=== PATIENT | male | born 1980 | race Caucasian/White ===

== ENCOUNTER 2016-12-22 03:15 | Emergency (ER) | payer MEDICAID ==
[2016-12-22 04:04] LABS: BASOPHIL % 0.4 % (0-2); PLATELET COUNT 137 x10^3mcL (130-400)
[2016-12-22 04:06] LABS: RED CELL DISTRIBUTION WIDTH 15.8 % (11.5-14.5)
[2016-12-22 04:17] LABS: CALCIUM 9.2 mg/dL (8.5-10.1); CHLORIDE SERUM 107 mmol/L (98-107); CREATININE SERUM 0.7 mg/dL (0.7-1.3); GFR1 > 60 mL/min; GLUCOSE SERUM 159 mg/dL (74-106); POTASSIUM SERUM 3.7 mmol/L (3.5-5.1); SODIUM SERUM 143 mmol/L (136-145)
[2016-12-22 04:20] LABS: ALBUMIN 3.4 g/dL (3.4-5.0); ALKALINE PHOSPHATASE 100 U/L (46-116); ALT/SGPT 50 U/L (16-63); AST/SGOT 60 U/L (15-37); BILIRUBIN TOTAL 2.49 mg/dL (0.20-1.00); TOTAL PROTEIN, SERUM 7.3 g/dL (6.4-8.2)
[2016-12-22 06:34] VITALS: BP 134/94
== END 2016-12-22 06:34 | disposition home or self-care (01) ==
LOC: ED 03:15
PROVIDERS: Emergency Medicine
DX: L95.9 Vasculitis limited to the skin, unspecified (principal); J45.909 Unspecified asthma, uncomplicated; Z88.5 Allergy status to narcotic agent
CPT/HCPCS: 83880; Q0092

== ENCOUNTER 2017-02-21 17:19 | Emergency (ER) | payer SELFPAY ==
[2017-02-21 19:58] VITALS: BP 156/94
== END 2017-02-21 20:46 | disposition home or self-care (01) ==
LOC: ED 17:19
DX: R21 Rash and other nonspecific skin eruption (principal); M79.661 Pain in right lower leg; M79.662 Pain in left lower leg; J45.909 Unspecified asthma, uncomplicated
CPT/HCPCS: J1885; J7512